=== PATIENT | female | born 1930 | race Caucasian/White ===

== ENCOUNTER 2018-07-12 10:38 | Emergency (ER) | payer MEDICARE ==
[~2018-07-12] VITALS: Ht 157.5 cm; Wt 45.4 kg
[2018-07-12 11:22] LABS: BASOPHILS ABSOLUTE AUTO 0.04 K/mm3 (0.00-0.23); BASOPHILS PERCENT AUTO 0 % (0-2); EOSINOPHILS ABSOLUTE AUTO 0.07 K/mm3 (0.00-0.68); EOSINOPHILS PERCENT AUTO 1 % (0-6); Hematocrit 36.4 % (33.0-51.0); IMMATURE GRAN ABSOLUTE AUTO 0.03 K/mm3 (0.00-0.10); IMMATURE GRAN PERCENT AUTO 0 % (0-1); LYMPHOCYTES ABSOLUTE AUTO 1.32 K/mm3 (0.84-5.20); LYMPHOCYTES PERCENT AUTO 14 % (21-46); MONOCYTES ABSOLUTE AUTO 0.97 K/mm3 (0.16-1.47); MONOCYTES PERCENT AUTO 11 % (4-13); Mean Corpuscular Volume 97 fL (80-100); Mean Platelet Volume 11.7 fL (9.1-12.4); NEUTROPHILS ABSOLUTE AUTO 6.74 K/mm3 (1.96-9.15); NEUTROPHILS PERCENT AUTO 74 % (41-73); Platelet Count 189 K/mm3 (150-400); RDW Coefficient Variation 13.3 % (11.7-14.2); Red Blood Cell Count 3.75 M/mm3 (3.80-5.20); White Blood Cell Count 9.17 K/mm3 (4.00-11.30)
[2018-07-12 11:23] LABS: Bilirubin, Urine Neg (Neg); Blood, Urine 2+ (Neg); Glucose Qualitative, Urine 4+ (Neg); Ketones, Urine Neg (Neg); Leukocyte Esterase, Urine Neg (Neg); Nitrite, Urine Neg (Neg); Protein, Urine Neg (Neg); Specific Gravity, Urine 1.015 (1.003-1.022); Urobilinogen, Urine NORM (Normal)
[2018-07-12] MEDS ORDERED: ACAR50 PO (11:39)
[2018-07-12] MEDS ORDERED: AMLO10 PO (11:39)
[2018-07-12 11:40] LABS: Appearance, Urine Clear (Clear); Color, Urine Pale Yellow (P-Yellow)
[2018-07-12] MEDS ORDERED: GLIM4 PO (11:40)
[2018-07-12] MEDS ORDERED: BENA20 PO (11:40)
[2018-07-12 11:44] LABS: Bacteria Not Seen /hpf; Squamous Epithelial Cells Rare /hpf (Few); White Blood Cells, Urine Not Seen /hpf (0-5)
[2018-07-12 11:54] LABS: Anion Gap 8 mmol/L (6-16); Blood Urea Nitrogen 33 mg/dL (8-24); Bun/Creatinine Ratio 45.4 (12.0-20.0); CO2, Blood 22 mmol/L (21-32); Calcium, Blood 8.2 mg/dL (8.5-10.1); Chloride, Blood 102 mmol/L (98-108); Creatinine, Blood 0.73 mg/dL (0.40-1.00); Glomerular Filtration Rate >60 (60-); Glucose, Blood 292 mg/dL (70-99); Potassium, Blood 3.7 mmol/L (3.5-5.5); Sodium, Blood 132 mmol/L (136-145)
== END 2018-07-12 12:36 | disposition home or self-care (01) ==
LOC: EDBD 10:38 → ER 10:38
PROVIDERS: Emergency Medicine
DX: F03.90 Unspecified dementia, unspecified severity, without behavioral disturbance, psychotic disturbance, mood disturbance, and anxiety (principal); E11.9 Type 2 diabetes mellitus without complications; E86.0 Dehydration; W19.XXXA Unspecified fall, initial encounter; Z88.5 Allergy status to narcotic agent; N39.0 Urinary tract infection, site not specified
CPT/HCPCS: 70450; 71046; 80048; 81001; 81003; 82947; 85025; 93005; 93010; 99284-25; J7030

== ENCOUNTER → 2018-07-12 | Outpatient (CLI) | payer MEDICARE ==
[~2018-07-12] MED LIST: ACAR50 PO; AMLO10 PO; BENA20 PO; GLIM4 PO
[2018-07-12 12:28] LABS: Bilirubin, Urine Neg (Neg); Blood, Urine Neg (Neg); Glucose Qualitative, Urine 4+ (Neg); Ketones, Urine Neg (Neg); Leukocyte Esterase, Urine Neg (Neg); Nitrite, Urine Neg (Neg); Protein, Urine Neg (Neg); Specific Gravity, Urine 1.015 (1.003-1.022); Urobilinogen, Urine NORM (Normal)
[2018-07-12 12:45] LABS: Appearance, Urine Clear (Clear); Color, Urine Yellow (P-Yellow)
== END ==
LOC: LAB SHORT 12:04 → LAB 12:04
DX: N39.0 Urinary tract infection, site not specified (principal)
CPT/HCPCS: 81003

== ENCOUNTER → 2018-07-26 | Outpatient (CLI) | payer MEDICARE ==
[~2018-07-26] MED LIST changes: +ACET325 PO; +BISA10S PR; +Benazepril HCl10 MG PO; +CALMOSEPTINE O3.5 GM; +CALMOSEPTINE O3.5 GM TOP; +CVS DISPOSABLE399 ML PR; +Calci-Chew500 MG PO; +D3-20002000 UNIT PO; +DIGOX125 MCG PO; +FURO40 PO; +Hydrochlorothia50 MG PO; +INVOKANA300 MG PO; +Loperamide2 MG PO; +Metformin HCl500 MG PO; +Milk Of Ma400 MG/5 M PO; +Norvasc2.5 MG PO; +Norvasc5 MG PO; +Oyster Shell C500 MG PO; +PIOG30 PO; +POTCHL10ER PO; +QUET25 PO; +SODCHL1 PO; +THERA1 EACH PO; +TRIPLE ANTIBIO1 EACH TOP
[2018-07-26 14:54] LABS: Bilirubin, Urine Neg (Neg); Blood, Urine Neg (Neg); Glucose Qualitative, Urine 2+ (Neg); Ketones, Urine 3+ (Neg); Leukocyte Esterase, Urine Neg (Neg); Nitrite, Urine Neg (Neg); Protein, Urine 1+ (Neg); Specific Gravity, Urine 1.015 (1.003-1.022); Urobilinogen, Urine NORM (Normal)
[2018-07-26 15:35] LABS: Appearance, Urine Clear (Clear); Color, Urine Yellow (P-Yellow)
== END | disposition home or self-care (01) ==
LOC: LAB SHORT 11:10 → LAB 11:10
PROVIDERS: Family Medicine
DX: N39.0 Urinary tract infection, site not specified (principal)
CPT/HCPCS: 81003

== ENCOUNTER 2018-09-18 12:53 | Inpatient (IN) | payer MEDICARE ==
[~2018-09-18] VITALS: Ht 154.9 cm; Wt 48.9 kg
[~2018-09-18 12:53] MED LIST changes: -ACET325 PO; -BISA10S PR; -Benazepril HCl10 MG PO; -CALMOSEPTINE O3.5 GM; -CALMOSEPTINE O3.5 GM TOP; -CVS DISPOSABLE399 ML PR; -Calci-Chew500 MG PO; -D3-20002000 UNIT PO; -DIGOX125 MCG PO; -FURO40 PO; -Hydrochlorothia50 MG PO; -INVOKANA300 MG PO; -Loperamide2 MG PO; -Metformin HCl500 MG PO; -Milk Of Ma400 MG/5 M PO; -Norvasc2.5 MG PO; -Norvasc5 MG PO; -Oyster Shell C500 MG PO; -PIOG30 PO; -POTCHL10ER PO; -QUET25 PO; -SODCHL1 PO; -THERA1 EACH PO; -TRIPLE ANTIBIO1 EACH TOP
[2018-09-18 13:36] LABS: BASOPHILS ABSOLUTE AUTO 0.01 K/mm3 (0.00-0.23); BASOPHILS PERCENT AUTO 0 % (0-2); EOSINOPHILS ABSOLUTE AUTO 0.01 K/mm3 (0.00-0.68); EOSINOPHILS PERCENT AUTO 0 % (0-6); Hematocrit 38.8 % (33.0-51.0); Hemoglobin 12.6 g/dL (11.5-16.0); IMMATURE GRAN ABSOLUTE AUTO 0.03 K/mm3 (0.00-0.10); IMMATURE GRAN PERCENT AUTO 0 % (0-1); LYMPHOCYTES ABSOLUTE AUTO 0.49 K/mm3 (0.84-5.20); LYMPHOCYTES PERCENT AUTO 5 % (21-46); MONOCYTES PERCENT AUTO 5 % (4-13); Mean Corpuscular HGB 32.2 pg (26.0-34.0); Mean Corpuscular HGB Conc 32.5 g/dL (31.5-36.5); Mean Corpuscular Volume 99 fL (80-100); NEUTROPHILS ABSOLUTE AUTO 8.73 K/mm3 (1.96-9.15); NEUTROPHILS PERCENT AUTO 89 % (41-73); Platelet Count 259 K/mm3 (150-400); RDW Coefficient Variation 15.5 % (11.7-14.2); RDW Standard Deviation 55.2 fL (35.1-46.3); Red Blood Cell Count 3.91 M/mm3 (3.80-5.20); White Blood Cell Count 9.77 K/mm3 (4.00-11.30)
[2018-09-18 13:57] LABS: Alanine Aminotransfer (ALT/SGP 208 U/L (12-78); Albumin, Blood 3.8 g/dL (3.4-5.0); Albumin/Globulin Ratio 1.2 (0.8-1.8); Alk Phos 92 U/L (50-136); Anion Gap 13 mmol/L (6-16); Aspartate Aminotrans (AST/SGOT 141 U/L (12-37); Bilirubin, Total 0.7 mg/dL (0.1-1.0); Blood Urea Nitrogen 36 mg/dL (8-24); Bun/Creatinine Ratio 43.6 (12.0-20.0); CO2, Blood 20 mmol/L (21-32); Calcium, Blood 8.8 mg/dL (8.5-10.1); Chloride, Blood 96 mmol/L (98-108); Creatinine, Blood 0.83 mg/dL (0.40-1.00); Globulin, Blood 3.1 g/dL (2.2-4.0); Glomerular Filtration Rate >60 (60-); Glucose, Blood 236 mg/dL (70-99); Potassium, Blood 4.7 mmol/L (3.5-5.5); Sodium, Blood 129 mmol/L (136-145); Total Protein, Blood 6.9 g/dL (6.4-8.2)
[2018-09-18 14:26] LABS: Influenza A Negative (NEGATIVE); Influenza B Negative (NEGATIVE)
[2018-09-18] MEDS ORDERED: GLIM4 PO (15:43)
[2018-09-18] MEDS ORDERED: Benazepril HCl10 MG PO (15:43)
[2018-09-18] MEDS ORDERED: Norvasc5 MG PO (15:43)
[2018-09-18] MEDS ORDERED: INVOKANA300 MG PO (15:44)
[2018-09-18] MEDS ORDERED: Hydrochlorothia50 MG PO (15:44)
[2018-09-18] MEDS ORDERED: THERA1 EACH PO (15:45)
[2018-09-18] MEDS ORDERED: Metformin HCl500 MG PO (15:45)
[2018-09-18] MEDS ORDERED: Oyster Shell C500 MG PO (15:46)
[2018-09-18] MEDS ORDERED: PIOG30 PO (15:46)
[2018-09-18] MEDS ORDERED: SODCHL1 PO (15:47)
[2018-09-18] MEDS ORDERED: D3-20002000 UNIT PO (15:48)
[2018-09-18] MEDS ORDERED: ACET325 PO (15:50)
[2018-09-18] MEDS ORDERED: BISA10S PR (15:51)
[2018-09-18] MEDS ORDERED: Calci-Chew500 MG PO (15:52)
[2018-09-18] MEDS ORDERED: Loperamide2 MG PO (15:54)
[2018-09-18] MEDS ORDERED: Milk Of Ma400 MG/5 M PO (15:55)
[2018-09-18] MEDS ORDERED: QUET25 PO (15:56)
[2018-09-18] MEDS ORDERED: CVS DISPOSABLE399 ML PR (15:59)
[2018-09-18] MEDS ORDERED: CALMOSEPTINE O3.5 GM (16:00)
[2018-09-18] MEDS ORDERED: CALMOSEPTINE O3.5 GM TOP (16:01)
[2018-09-18] MEDS ORDERED: TRIPLE ANTIBIO1 EACH TOP (16:03)
--- NOTE | 2018-09-18 16:11 | NUR ---
Initial Visit: Palliative Care Consult for goals of care: Spoke with Dr Ricks and he reports the family of Pt would like Pt to be referred to hospice and terminal diagnosis is dementia. Dr Ricks reports the plan is to admit and treat Pt for her respiratory failure and would like palliative care on board for goals of care and education for hospice. Pt is resting in bed and is on BIPAP. Difficult to assess Pt's mentation due to mask of BIPAP. At present she appears comfortable with a FLACC score of 0/10. Pt's daughter Luly and Luly's present during visit. Luly reports that she is the Pt's healthcare site safety representative. Lluy reports the Pt's lives at [facility] in [place] and she is of [employer] mar[employer]. Engaged in threapeutic conversation about goals of care. Listened as Luly expressed concerns. Luly would like Pt to be treated for her current illness and when she is ready for discharged the plan is for hospice. Educated Luly on hospice philosophy with V/U made by Luly. She reports that she is familiar with hospice and the current facility where Pt lives has [facility] hospice nurses visiting other residents. Luly expressed concerns about reason for Pt receiving IV antibiotics as well. Educated Luly on reason for treatment and she is agreeable. Luly also reports the Pt would appreciate a Chaplian visit. NO other concerns reported at this time. Based off of Julvinicius report Pt is significantly demented and currently Pt requires assistance with 5/6 of ADLs. Pt does not have difficulty with swallowing at this time. Based off of Ruby report current FAST score is 7D. Current PPS is 40% and KPS 40. Spoke with Pt's ED nurse and she is agreeable with plan and reports no concerns at this time. Plan: Will place hopice referral, spiritual care referral, and remain available for therapeutic visits.
--- NOTE | 2018-09-19 03:48 | NUR ---
PCU NOC SHIFT SUMMARY PATIENT ARRIVED TO UNIT VIA GURNEY FROM ER. PATIENT SLEEPING WITH [address] PATIENT LETHARGIC AND MOANS TO VERBAL AND PHYSICAL STIMULI (PATIENT MEDICATED FOR AGITATION IN ER PRIOR TO ARRIVAL). VSS. RESP E/U UNLABORED. PATIENT TITRATED DOWN TO ROOM AIR FROM 2 LPM NC. PATIENT INCONTINENT OF STOOL AND URINE T/O SHIFT. PATIENT TURNED Q2 AND ATTENDS CHANGED PRN. AT APPROX 0300 PATIENT CONVERTED TO AFIB/FLUTTER WITH HR OF 140-150'S - MD LAY NOTIFIED. IV CARDIAC MEDICATION ORDERED AND GIVEN PER EMAR. PATIENT CURRENTLY REMAINS IN AFIB WITH HER 110-120'S. WILL CONTINUE TO MONITOR AND GIVE REPORT TO RANDALL ELLIOTT RN. NO FURTHER ACUTE CHANGES NOTED. BED ALARM ON AND SIDE RAILS UP X2.
[2018-09-19 05:57] LABS: Alanine Aminotransfer (ALT/SGP 159 U/L (12-78); Albumin, Blood 3.3 g/dL (3.4-5.0); Albumin/Globulin Ratio 1.2 (0.8-1.8); Alk Phos 77 U/L (50-136); Anion Gap 12 mmol/L (6-16); Aspartate Aminotrans (AST/SGOT 70 U/L (12-37); Bilirubin, Total 0.6 mg/dL (0.1-1.0); Blood Urea Nitrogen 34 mg/dL (8-24); Bun/Creatinine Ratio 43.3 (12.0-20.0); CO2, Blood 24 mmol/L (21-32); Calcium, Blood 8.5 mg/dL (8.5-10.1); Chloride, Blood 96 mmol/L (98-108); Creatinine, Blood 0.79 mg/dL (0.40-1.00); Globulin, Blood 2.8 g/dL (2.2-4.0); Glomerular Filtration Rate >60 (60-); Glucose, Blood 140 mg/dL (70-99); Potassium, Blood 3.6 mmol/L (3.5-5.5); Sodium, Blood 132 mmol/L (136-145); Total Protein, Blood 6.1 g/dL (6.4-8.2)
--- NOTE | 2018-09-19 07:33 | NUR ---
Bedside report received from Marleni Fisher Rn. The pt is awake, but confused. Unable to state neither her full name, birthdate, location, nor her place of residence. She mumbles to herself confusedly when not engaged in conversation with staff. She is lying in bed, appears to be without anxiety or distress, and respirations are even and unlabored in a supine position with HOb elevated 15 degrees. Heart rate is 120-150; metoprolol was started this morning when the patient converted to afib, I am told in report by Marleni. The pt is not wearing oxygen, and spo2 measured on her toe is 94% presently. Bed alarm is set.
--- NOTE | 2018-09-19 09:59 | NUR ---
Blood pressure noted 92/59 following administration of IV lasix. Heart rate is 148 at this time. The pt is not having any difficulty breathing, and appears to be calm and comfortable, albeit confused. I spoke with her daughter Luly on the phone and Luly states that she would like to continue current treatment, but nothing more invasive than what she is currently receiving. If for example the pt would require bipap then Luly would not that as she has been considering putting the pt on hospice recently, before this hospitalization occured.
--- NOTE | 2018-09-19 10:02 | NUR ---
HOB lowered due to low blood pressure.
--- NOTE | 2018-09-19 12:30 | NUR ---
f/u Palliative Care vist. Spoke with pt's RN, [place] and reviewed prev Pal Care notes before calling daughter and visiting pt. RN reports decreased BP and increased HR this am. Pt was flat in bed and moaning when I saw her. RN was changing very wet attends. Later when staff attempted to [place] [facility] [place] made a bee-line for the bathroom 10-15 feet from the bed. Pt is unable to follow instructions. She appears more awake & alert but remains profoundly confused. Pt has late state dementia and was admitted with CHF, a-fib and RVR. I had lengthy conversation with pt's joe, Luly, on the phone re: goals of care, her wishes, comfort care, hospice, s/s management and assisted picture for pt's disease progression even if CHF corrected. We discussed IV hydration, roe cath, oral intake and medications, IV medications. Joe is on her way in with her and would like to speak further when she gets here. Reported to RITA, RN and Youth Program Director regarding my conversation with Luly. I requested Youth Program Director visit for both the pt and pt's joe when she arrives. Joe was very appreciative of that when I offered Youth Program Director services. Also, per her request I put pt's TV channel to a music channel.
--- NOTE | 2018-09-19 12:51 | NUR ---
SPOKE WITH DR MOYA ON THE PHONE REGARDING BLOOD PRESSURE, HEART RATE, AND PT GENERAL CONDITION. ALSO PASSED ALONG INFORMATION FROM MY CONVERSATION WITH THE DAUGHTER MARLENA REGARDING HOW MUCH INTERVENTION TO DO. MARLENA ALSO SPOKE WITH PALLIATIVE CARE AND I WAS TOLD THAT MARLENA IS UNCERTAIN WHETHER OR NOT SHE WOULD LIKE THE PT TO HAVE A PERALES.
--- NOTE | 2018-09-19 15:00 | NUR ---
Palliative Care Visit. Second visit made once pt's daughter arrived. Luly would like her mom to have hospice at [facility]. Updated Dr and orders for Hospice obtained and entered. Updated Madelaine SALINAS who made all arrangements with [facility] and [facility]. [facility] requested an updated POLST, which was completed with Luly, signed by and copies made for the chart and faxed to medical records. Joe feels pt will be most comfortable back in her familiar surroundings and would like d/c back to [facility] today if possible. Joe expressed appreciation for the care her mom received multiple times. She stated she was very happy with all staff she has encountered during this admission. Reassessement of pt done. Pt is awake, alert and confused. Her laisha is redirecting her. Pt does not appear to be distressed or in pain. Noted slight anxiety re: unfamiliar surroundings and people talking in her room.
--- NOTE | 2018-09-19 15:20 | NUR ---
Lengthy conversation with Emely's dtr, Luly. At Luly's request, I gently explained the difference between Palliative Care, Comfort Care, and Hospice. After conversation and prayer, Luly has decided she want her mom to return to her care facility on hospice services. Pt is quite confused, but calm. She appears comfortable. I will remain available to pt and family.
[2018-09-19] MEDS ORDERED: BENA20 PO (15:42)
[2018-09-19] MEDS ORDERED: Norvasc2.5 MG PO (15:42)
[2018-09-19] MEDS ORDERED: DIGOX125 MCG PO (15:43)
[2018-09-19] MEDS ORDERED: FURO40 PO (15:45)
[2018-09-19] MEDS ORDERED: POTCHL10ER PO (15:45)
--- NOTE | 2018-09-19 17:38 | NUR ---
Call to Luly, the pt's daughter to let her know that the pt will be picked up and transported back to [facility] at 1815 this evening.
--- NOTE | 2018-09-19 18:42 | NUR ---
1800 Assisted the pt to the bedside commode to void. Changed her wet attends, and put on new clean ones. Assisted to sitting position on the side of the bed, and a robe put on her in anticipation of transfer to [facility]. Transport arrived during this time, and the pt was helped to the stretcher and covered with warm blankets for the transfer. She was talkative, cooperative and cheerful. She appears happy to be going home.
== END 2018-09-19 18:15 | disposition hospice, home (50) | DRG 291 ==
LOC: ER 12:53 → ERHOLD 15:37 → PCU 20:55
PROVIDERS: Emergency Medicine; ADMIT Internal Medicine
DX: I11.0 Hypertensive heart disease with heart failure (principal); I50.21 Acute systolic (congestive) heart failure; J96.01 Acute respiratory failure with hypoxia; I24.8 Other forms of acute ischemic heart disease; E87.1 Hypo-osmolality and hyponatremia; E11.9 Type 2 diabetes mellitus without complications; F03.90 Unspecified dementia, unspecified severity, without behavioral disturbance, psychotic disturbance, mood disturbance, and anxiety; I95.9 Hypotension, unspecified; M81.0 Age-related osteoporosis without current pathological fracture; Z66 Do not resuscitate; Z88.5 Allergy status to narcotic agent; Z79.84 Long term (current) use of oral hypoglycemic drugs; Z79.899 Other long term (current) drug therapy
CPT/HCPCS: 36415; 71045; 80053; 82947; 83036; 83605; 83880; 84145; 84484; 85025; 87804; 93005; 93010; 93306; 94644; 94660; 96372-59; 96374-59; 96375-59; 96376-59; 99285-25; J0456; J0696; J1160; J1650; J1815; J1940; J2060; J2930; J7050